=== PATIENT | male | born 1975 | race Caucasian/White ===

== ENCOUNTER 2021-02-24 20:20 | Emergency (ER) | payer BC ==
[2021-02-25] MEDS ORDERED: NAPROSYN500 MG PO (00:15)
== END 2021-02-25 00:25 | disposition home or self-care (01) ==
LOC: ER1 20:20
DX: S62.332A Displaced fracture of neck of third metacarpal bone, right hand, initial encounter for closed fracture (principal); S62.346A Nondisplaced fracture of base of fifth metacarpal bone, right hand, initial encounter for closed fracture; E78.5 Hyperlipidemia, unspecified; I10 Essential (primary) hypertension; K21.9 Gastro-esophageal reflux disease without esophagitis; Z90.49 Acquired absence of other specified parts of digestive tract; Z90.89 Acquired absence of other organs; W22.8XXA Striking against or struck by other objects, initial encounter
CPT/HCPCS: 29125; 73110; 73130; 99283

== ENCOUNTER → 2021-08-09 | Outpatient (CLI) | payer BC ==
[~2021-08-09] MED LIST: NAPROSYN500 MG PO
== END ==
LOC: KOH-I 14:22
DX: R51.9 Headache, unspecified (principal)
CPT/HCPCS: 70450